=== PATIENT | female | born 1995 | race Two or more races ===

== ENCOUNTER 2016-09-08 14:39 | Emergency (ER) | payer OTHER, MEDICAID ==
[~2016-09-08] VITALS: Ht 165.1 cm; Wt 54.9 kg
[2016-09-08 16:07] VITALS: BP 108/70
== END 2016-09-08 16:26 | disposition home or self-care (01) ==
LOC: ER 14:39
DX: O26.891 Other specified pregnancy related conditions, first trimester (principal); S30.0XXA Contusion of lower back and pelvis, initial encounter; Z3A.11 11 weeks gestation of pregnancy; Y04.0XXA Assault by unarmed brawl or fight, initial encounter; Y93.89 Activity, other specified; Y99.8 Other external cause status; Y92.89 Other specified places as the place of occurrence of the external cause